=== PATIENT | female | born 1985 | race Caucasian/White ===

== ENCOUNTER 2023-02-25 14:33 | Outpatient (OUT) | payer SELFPAY ==
--- NOTE | 2023-02-25 | XR_ITS ---
[place] [id number] Patient Name: BENNIE VELEZ MRN: [id number] date: 1985 Sex: F Assigned Patient Location: RAD Current Patient Location: RAD Accession/Order Number: [id number] Exam Date: 02/25/2023 14:52 Report Date: 02/25/2023 22:12 At the request of: JOHN TREVIZO Procedure: XR abdomen 1V Exam: Radiographs: XR abdomen 1V Reason for exam: Flank pain Comparison: None XR/XR abdomen 1V IMPRESSION: No gas-filled dilated loops of small bowel or colon. No gaseous dilation of the stomach. No fecal impaction. Remainder unremarkable. Electronically authenticated by: SELENA PICHARDO Date: 02/25/2023 22:12
== END 2023-02-25 14:34 | disposition home or self-care (01) ==
LOC: RAD 14:37
PROVIDERS: PCP Internal Medicine; Visit Provider Nurse Practitioner
DX: R31.9 Hematuria, unspecified (principal); R10.9 Unspecified abdominal pain
CPT/HCPCS: 74018